=== PATIENT | female | born 1975 | race Caucasian/White ===

== ENCOUNTER 2016-10-30 20:16 | Emergency (ER) | payer SELFPAY ==
--- NOTE | ~2016-10-30 | CR63 ---
[facility] A Service of [facility] & [facility] RADIOLOGY TEXT RESULTS PATIENT: ARETHA BARKLEY LOCATION: [facility] : 73 UNIT #: [id number] AGE: [address]: Aretha Hendricks RN HEART SEX: F ORDER DR: [id number] [facility] [address] [place], [place] [address] [id number] E MR#: [id number] Acc #: [id number] NAME: ARETHA BARKLEY : 1975 SEX: F STUDY DATE/TIME: 10/30/2016 19:45 UNIT: [facility] ROOM: STUDY DESCRIPTION: CR Chest 2 View Attending Physician: Aretha Hendricks A.P.R.N. Referring Physician: Primary Care Physician No Ordering Physician: Aretha Hendricks A.P.R.N. Primary Care Physician: Primary Care Physician No MEDICAL IMAGING REPORT This report is preliminary unless electronic signature is present EXAM 2 views chest, 10/30/2016 HISTORY Cough. 2 weeks duration. Bilateral ear pain, cough, congestion. FINDINGS PA and lateral radiographs of the chest are presented. Comparison 05/07/2016. Degenerative change in the spine. No acute-appearing bony abnormality. Heart upper limits of normal in size. The lungs are well inflated bilaterally. No evidence of acute pulmonary disease, pleural effusion or pneumothorax. No suspicious nodule. Surgical clips in the upper abdomen. Dictated by... Pavel Medrano M.D. THIS IS AN ELECTRONICALLY VERIFIED REPORT Pavel Medrano M.D. at 10/31/2016 8:22 PM Amor TD: 10/31/2016 14:15 JOB #: [id number] MEDICAL IMAGING REPORT COPY
[2016-10-30 20:18] LABS: INFLUENZA A NEG (NEG); INFLUENZA B NEG (NEG)
== END 2016-10-30 20:50 | disposition home or self-care (01) ==
LOC: CFTX 20:16
PROVIDERS: Nurse Practitioner
DX: J06.9 Acute upper respiratory infection, unspecified (principal); H66.93 Otitis media, unspecified, bilateral; Z88.5 Allergy status to narcotic agent
CPT/HCPCS: 71020; 87651; 87804; 99283

== ENCOUNTER 2017-04-19 12:25 | Emergency (ER) | payer SELFPAY ==
--- NOTE | ~2017-04-19 | US85 ---
[facility] A Service of [facility] RADIOLOGY TEXT RESULTS PATIENT: LISBETH BARKLEY LOCATION: [facility] : 73 UNIT #: [id number] AGE: [address]: Leia Nino APRN SEX: F ORDER DR: [id number] [facility] [address] [place], [place] [address] [id number] E MR#: [id number] Acc #: [id number] NAME: LISBETH BARKLEY : 1975 SEX: F STUDY DATE/TIME: 04/19/2017 13:16 UNIT: [facility] ROOM: STUDY DESCRIPTION: [facility] or [facility] Stdy Attending Physician: Leia Nino A.P.R.N. Ordering Physician: Ed Jerrell Stoll M.D. Primary Care Physician: [facility] MEDICAL IMAGING REPORT This report is preliminary unless electronic signature is present EXAM Right lower extremity Doppler venous ultrasound DATE 04/19/2017 HISTORY Right extremity pain and swelling around the knee for 1 week. TECHNIQUE Venous ultrasound examination of the right lower extremity was performed using grayscale, spectral Doppler and color flow Doppler imaging. FINDINGS The examination is negative. There is no evidence of right lower extremity deep venous thrombus from the groin to the lower calf. Visualized greater saphenous vein is also patent. IMPRESSION Negative examination. No evidence of right lower extremity deep venous thrombosis. Dictated by... Nolvia Oh M.D. THIS IS AN ELECTRONICALLY VERIFIED REPORT Nolvia Oh M.D. at 04/22/2017 8:52 AM [facility]/to TD: 04/19/2017 22:56 JOB #: [id number] MEDICAL IMAGING REPORT [facility] A Service of [facility] RADIOLOGY TEXT RESULTS PATIENT: LISBETH BARKLEY LOCATION: [facility] : 73 UNIT #: [id number] AGE: [address]: Leia Nino APRN SEX: F ORDER DR: Page 1 of 1 COPY
--- NOTE | ~2017-04-19 | CR170 ---
[facility] A Service of [facility] RADIOLOGY TEXT RESULTS PATIENT: LISBETH BARKLEY LOCATION: [facility] : 73 UNIT #: [id number] AGE: [address]: Leia iNno APRN SEX: F ORDER DR: [id number] [facility] [address] [place], [place] [address] [id number] E MR#: [id number] Acc #: [id number] NAME: LISBETH BARKLEY : 1975 SEX: F STUDY DATE/TIME: 04/19/2017 13:03 UNIT: [facility] ROOM: STUDY DESCRIPTION: CR Knee 2 Views Rt Attending Physician: Leia Nino A.P.R.N. Ordering Physician: Moisés Stoll M.D. Primary Care Physician: [facility] REPORT This report is preliminary unless electronic signature is present EXAM Right knee series, 04/19/2017 HISTORY Knee pain/swelling. No known injury. Right knee pain anterior and medial, 1 week duration. FINDINGS AP and lateral radiographs of the right knee are presented. Poor patient positioning. No traumatic fracture or malalignment. Joint spaces appear intact. Calcifications at the insertion of quadriceps tendon on patella. No joint effusion suggested. No acute appearing soft tissue abnormality. If it would assist in management and if the patient is a candidate, knee could be further evaluated with elective MRI. Dictated by... Pavel Medrano M.D. THIS IS AN ELECTRONICALLY VERIFIED REPORT Pavel Medrano M.D. at 04/21/2017 6:14 PM JACKLYN/janessa TD: 04/20/2017 00:54 JOB #: [id number] MEDICAL IMAGING REPORT Page 1 of 1 COPY
== END 2017-04-19 14:03 | disposition home or self-care (01) ==
LOC: CED 12:25 → CFTX 12:25
DX: M25.561 Pain in right knee (principal); F32.9 Major depressive disorder, single episode, unspecified; M32.9 Systemic lupus erythematosus, unspecified; Z88.5 Allergy status to narcotic agent
CPT/HCPCS: 29530; 73560; 93971; 96372; 99284; J1885

== ENCOUNTER 2017-05-10 13:52 | Emergency (ER) | payer SELFPAY ==
[~2017-05-10] VITALS: Ht 172.7 cm; Wt 136.1 kg
== END 2017-05-10 16:40 | disposition home or self-care (01) ==
LOC: CED 13:52 → CFTX 13:52
DX: M25.561 Pain in right knee (principal); G89.29 Other chronic pain; Z88.8 Allergy status to other drugs, medicaments and biological substances; Z98.890 Other specified postprocedural states
CPT/HCPCS: 99283